=== PATIENT | male | born 1955 | race Caucasian/White ===

== ENCOUNTER 2016-09-20 18:37 | Observation (INO) ==
[2016-09-20] MEDS ORDERED: ASPIRIN PO STA (18:44)
[2016-09-20 19:03] LABS: MANUAL DIFF NEEDED? NO
[2016-09-20 19:13] LABS: BASO% 0.5 % (0.0-0.8); EOS# 0.12 X1000 (0.0-0.7); EOS% 1.6 % (0.0-10.0); HEMATOCRIT 46.8 % (42.0-52.0); HEMOGLOBIN 16.4 g/dL (14.0-18.0); IMM GRAN# 0.02 X1000 (0.0-0.04); IMM GRAN% 0.3 % (0.0-0.5); LYMPH# 1.32 X1000 (1.2-3.4); LYMPH% 17.7 % (20.5-51.1); MCH 29.9 PG (27-31); MCV 85.2 FL (81-99); MONO# 0.57 X1000 (0.11-0.59); MONO% 7.6 % (1.7-9.3); MPV 10.1 FL (7.4-10.4); NEUT% 72.3 % (42.2-75.2); PLT 245 X1000 (130-400); RBC 5.49 XMIL (4.7-6.1)
[2016-09-20 19:14] LABS: PROTIME 10.5 Seconds (9.2-11.7); PTT 27.5 Seconds (22.0-36.0)
[2016-09-20 19:22] LABS: ALBUMIN 4.3 g/dL (3.5-5.0); CALCIUM 9.1 mg/dL (8.8-10.2); MAGNESIUM 2.2 mg/dL (1.5-2.7); POTASSIUM 3.5 mmol/L (3.5-5.1); TOTAL BILIRUBIN 0.29 mg/dL (0.20-1.00); TOTAL PROTEIN 7.4 g/dL (6.3-8.3)
[2016-09-20] MEDS ORDERED: NITROGLYCERIN SL PRN (20:10)
[2016-09-20 21:04] LABS: HEMOGLOBIN A1C 5.9 % (4.8-6.0)
--- NOTE | 2016-09-20 21:38 | HISTORY AND PHYSICAL ---
REASON FOR ADMISSION: Chest pain for last 24 hours. HISTORY OF PRESENT ILLNESS: Mr. Brown is a 61-year-old man with past medical history of coronary artery disease, chronic low back pain, sleep apnea, hypertension. He has had prior CABG and 2 stents in the last 2 years. He comes today because 24 hours ago he initially had a 1 minute episode of retrosternal chest pain radiating to his neck with shortness of breath and nausea. Several hours later, he had another episode of chest pain. This time lasting for a few more minutes with the same shortness of breath, diaphoresis, and nausea and radiation to his neck. He comes in today primarily because several hours after the second episode, he had a more intense episode of retrosternal chest pain radiating to his neck with palpitations, shortness of breath, lightheadedness, and even more profound diaphoresis. Since the onset of this third episode, he is having intermittent on and off chest pain lasting between 15-20 minutes and rates it about 4/10. He denies any antecedent leg swelling, extremity redness or pain. He denies any cough, fever, chills. He denies any PND or orthopnea. He has been given some nitroglycerin with minimal relief in the ER x1 dose. Also his blood pressure is a markedly elevated but the patient. Currently it is 200/130. REVIEW OF SYSTEMS: Patient has said he has had 3 day history of nonbloody diarrhea occurring about 2-3 times a day. No abdominal pain. No genitourinary complaints or any other GI complaints. No neurological complaints. No musculoskeletal complaints. No polyuria or polydipsia. No rash. His 12 system review is negative except for positives as per HPI. ALLERGIES: Coconut oil, cucumbers, strawberries, and penicillin. HOME MEDICATIONS: Xanax 1 mg t.i.d., Soma 350 mg b.i.d., Prozac 40 mg daily, [place] 10 mg t.i.d., lisinopril/HCTZ 20/25 mg once a day, Toprol-XL 25 mg daily, Pravachol 40 mg at bedtime, Ambien 10 mg at bedtime. PAST SURGICAL HISTORY: CABG and stents. SOCIAL HISTORY: Does not smoke, drink, or use drugs. FAMILY HISTORY: He is not sure if there is any heart disease in his family but his mother of breast cancer, dad of lung cancer, and positive history of diabetes in the family. LABORATORY DATA: White count 7000, hemoglobin and hematocrit are 16 and 46, platelets 245,000. Potassium 3.5, BUN 60, creatinine 1.3, bicarb 22, glucose 129. Troponin negative. EKG shows normal sinus rhythm with no ST wave changes. D-dimer is normal. EKG normal. Chest film is pending at this time. PHYSICAL EXAMINATION: VITAL SIGNS: Initial blood pressure was 152/86, now it is 200/130. Heart rate is 82, respirations 18, temperature 98.3, 98% on room air. GENERAL: He is a morbidly obese, middle-aged man who is anxious. He is alert and oriented to person, place and time. Normal mood and affect. HEENT: Head is normocephalic, atraumatic. Eyes KIRILL, EOMI. He is anicteric and not pale. Patient has bilateral pterygium. Oropharynx exam shows extensive pharyngeal crowding, I cannot visualize his posterior pharyngeal wall. No erythema or oral exudates. No signs of cyanosis. NECK: Short and thick. No JVD visualized. No bruit heard. No thyromegaly visualized. CHEST: Clear to auscultation. Good air exchange from [place]. CARDIOVASCULAR: First and second sounds heard. No gallops, murmurs, rubs. Rhythm is regular. ABDOMEN: Protuberant and soft. No tenderness. No masses. No organomegaly. Bowel sounds at this time. EXTREMITIES: No edema, clubbing, cyanosis. Pulses distally in all extremities, have good volume and are symmetrical. NEUROLOGICAL EXAMINATION: Focal deficits. SKIN: Intact. No breakdown or erythema. MUSCULOSKELETAL: Grossly normal. ASSESSMENT AND PLAN: 1. Chest pain. The patient has coronary artery disease. Plan is to optimize patient's medications, i.e., start him on full-dose aspirin; switch his Pravachol to more potent statin, being that he has documented CAD. We will start on Lipitor 40 mg at bedtime. Optimize his beta blockade, increase his Toprol from 25 daily to b.i.d. We will consult and keep him NPO. Do serial cardiac enzymes. Follow EKG in the a.m. Treat him symptomatically with nitroglycerin and morphine p.r.n. 2. Hypertensive heart disease. We continue his blood pressure medications but add on Norvasc to his regimen. I believe his elevated blood pressure may be in part due to the fact that his CPAP machine is destroyed and sleep apnea is not well controlled. 3. Morbid obesity. 4. Sleep apnea. Needs to schedule appointment with sleep doctor. We will consult Dr. Phillips for this. Also patient will need to get a local family doctor as he has only been seen in urgent care clinics and this would not be optimal for this kind of patient. 5. Deep venous thrombosis prophylaxis will be instituted using Lovenox. cc: Kj Michaud MD
[2016-09-20] MEDS ORDERED: ZOFRAN IV PRN (21:57)
[2016-09-20] MEDS ORDERED: LIPITOR PO SCH (21:57)
[2016-09-20] MEDS ORDERED: TYLENOL PO PRN (21:57)
[2016-09-20] MEDS: NITROGLYCERIN TOP SCH (22:28)
[2016-09-20] MEDS: LOVENOX SUBQ SCH (22:28)
[2016-09-20] MEDS: AMBIEN PO SCH (22:28)
[2016-09-20] MEDS: NORVASC PO SCH (22:28)
[2016-09-20] MEDS: TOPROL XL PO SCH (22:28)
--- NOTE | 2016-09-21 02:04 | PROVIDER DOCUMENTATION ---
This chart was entered by Slime Rodas Scribe, acting as scribe for Frank Waldrop MD. HPI-Chest Pain - General Chief Complaint: Chest Pain Stated Complaint: CP Time Seen by Provider: 09/20/16 19:12 Source: patient Allergies/Adverse Reactions: Patient Allergies Allergy/AdvReac Type Severity Reaction Status Date / Time coconut oil Allergy SWELLING Verified 09/20/16 19:46 cucumber Allergy SWELLING Verified 09/20/16 19:46 strawberry Allergy RASH Verified 09/20/16 19:46 Penicillins AdvReac SWELLING Verified 09/20/16 19:46 Home Medications: Home Medication List Medication Instructions Recorded Confirmed Last Taken Type PRAVAstatin [Pravachol] 40 mg PO HS 02/18/16 09/20/16 09/19/16 21:00 History Alprazolam [Xanax] 1 mg PO TID 06/04/16 09/20/16 09/20/16 08:00 History Carisoprodol [Soma] 350 mg PO TID 06/04/16 09/20/16 09/20/16 17:00 History Hydrocodone/APAP 10 mg/325 mg 1 each PO TID 06/04/16 09/20/16 09/20/16 08:00 History [Troy-10] Fluoxetine HCl [Prozac] 40 mg PO DAILY 09/20/16 09/20/16 09/20/16 08:00 History LISINOpril [Prinivil] 20 mg PO HS 09/20/16 09/20/16 09/19/16 21:00 History Lisinopril/Hydrochlorothiazide 1 each PO DAILY 09/20/16 09/20/16 09/20/16 08:00 History [Lisinopril-Hctz 20-25 mg Tab] Metoprolol Succinate [Toprol Xl] 25 mg PO DAILY 09/20/16 09/20/16 09/20/16 08: 00 History Zolpidem [Ambien] 10 mg PO QHS 09/20/16 09/20/16 09/19/16 21:00 History - History of Present Illness-CP Nature of Presenting Problem: 61 year old M presents to the ED with a cc of chest pain with an onset of 3 days ago. Pt states that today she has developed dizziness, nausea, diaphoresis , and SOB. Pt states that his pain has also been radiating to his neck and has been having left arm numbness. Location: reports: substernal Chest Pain Radiation: reports: neck Quality of Pain: reports: aching Severity in ED: mild Onset/Duration: 2 days ago Timing: still present Context/Activities at Onset: reports: none Associated Symptoms: reports: diaphoresis, dizziness, nausea, shortness of breath Aspirin Treatment Today: 325 mg x 1, provided by ED Similar Symptoms Previously?: No Recently Seen Here or By Another Healthcare Provider: No Review of Systems - Adult - REVIEW OF SYSTEMS - ADULT Constitutional: denies: chills, fever Eyes: reports: no symptoms reported Ears, Nose, Mouth & Throat: reports: no symptoms reported Cardiovascular: reports: chest pain. denies: palpitations Respiratory: reports: shortness of breath. denies: cough Gastrointestinal: reports: nausea. denies: vomiting Genitourinary: reports: no symptoms reported Musculoskeletal: reports: no symptoms reported Integumentary: reports: no symptoms reported Neurological: reports: dizziness/vertigo. denies: headache/migraines Psychiatric: reports: no symptoms reported Endocrine: reports: no symptoms reported Hematologic/Lymphatic: reports: no symptoms reported Allergic/Immunologic: reports: no symptoms reported All Other Systems: Reviewed and Negative Past History - Adult - PAST MEDICAL HISTORY-ADULT Review of Records: reports: Nursing Assessment Review, Medications Reviewed Major Childhood Illnesses: reports: denies history Cardiovascular: reports: CAD, HTN - PRIOR SURGERIES/PROCEDURES Surgical/Procedure History: reports: CABG, cardiac stent, orthopedic (extremity) - IMMUNIZATION STATUS Childhood Immunizations: See Nurse Assessment Flu Vaccine: See Nurse Assessment - SOCIAL HISTORY Smoking: non-smoker Substance Use: none/never Alcohol Use Frequency: never Physical Exam-General - PHYSICAL EXAM-ADULT Initial Vital Signs Reviewed: Yes - CONSTITUTIONAL General Appearance: appears well, alert, no apparent distress, obese - RESPIRATORY Respiratory: chest non-tender, lungs clear, normal breath sounds - CARDIOVASCULAR Cardiovascular: normal peripheral pulses, regular rate, rhythm, no edema - GASTROINTESTINAL (ABDOMEN) Abdominal Exam: non tender, soft - MUSCULOSKELETAL Extremity: normal inspection - SKIN Integumentary: diaphoresis - PSYCHIATRIC Psych/Mental Status: normal mood/affect, normal thought content, normal thought process, oriented x 3 Progress - PLAN OF CARE/RESULTS Progress/Plan/Lab Results: Vital Signs - 8 hr 09/20/16 18:39 09/20/16 21:39 Temperature 98.3 F Pulse Rate 83 62 Respiratory Rate 16 15 Blood Pressure 152/86 176/93 O2 Sat by Pulse Oximetry 98 Laboratory Results - last 24 hr 09/20/16 09/20/16 09/20/16 18:45 18:45 18:45 WBC 7.46 RBC 5.49 Hgb 16.4 Hct 46.8 MCV 85.2 MCH 29.9 MCHC 35.0 RDW Std Deviation 13.8 Plt Count 245 MPV 10.1 Immature Gran % (Auto) 0.3 Neut % (Auto) 72.3 Lymph % (Auto) 17.7 L Edgar % (Auto) 7.6 Eos % (Auto) 1.6 Baso % (Auto) 0.5 Immature Gran # (Auto) 0.02 Neut # (Auto) 5.39 Lymph # (Auto) 1.32 Edgar # (Auto) 0.57 Eos # (Auto) 0.12 Baso # (Auto) 0.04 PT INR PTT (Actin FS) D-Dimer 0.10 Sodium 139 Potassium 3.5 Chloride 100 Carbon Dioxide 22 L Anion Gap 17 BUN 16 Creatinine 1.3 H Estimated GFR/1.73 m2 56 BUN/Creatinine Ratio 12 Glucose 129 H Estimat Average Glucose Hemoglobin A1c Calculated Osmolality 280 Calcium 9.1 Magnesium 2.2 Total Bilirubin 0.29 AST 22 ALT 19 Alkaline Phosphatase 57 Creatine Kinase 131 Troponin T Hvh-B-Lsquifphccr Pept Total Protein 7.4 Albumin 4.3 Globulin 3.1 Albumin/Globulin Ratio 1.4 Triglycerides Cholesterol LDL Cholesterol Direct VLDL Cholesterol, Calc HDL Cholesterol Coronary Risk Interp 09/20/16 09/20/16 09/20/16 18:45 18:45 18:45 WBC RBC Hgb Hct MCV MCH MCHC RDW Std Deviation Plt Count MPV Immature Gran % (Auto) Neut % (Auto) Lymph % (Auto) Edgar % (Auto) Eos % (Auto) Baso % (Auto) Immature Gran # (Auto) Neut # (Auto) Lymph # (Auto) Edgar # (Auto) Eos # (Auto) Baso # (Auto) PT 10.5 INR 1.00 PTT (Actin FS) 27.5 D-Dimer Sodium Potassium Chloride Carbon Dioxide Anion Gap BUN Creatinine Estimated GFR/1.73 m2 BUN/Creatinine Ratio Glucose Estimat Average Glucose Hemoglobin A1c Calculated Osmolality Calcium Magnesium Total Bilirubin AST ALT Alkaline Phosphatase Creatine Kinase Troponin T < 0.010 [id number] Pept 38 Total Protein Albumin Globulin Albumin/Globulin Ratio Triglycerides Cholesterol LDL Cholesterol Direct VLDL Cholesterol, Calc HDL Cholesterol Coronary Risk Interp 09/20/16 09/20/16 18:45 18:45 WBC RBC Hgb Hct MCV MCH MCHC RDW Std Deviation Plt Count MPV Immature Gran % (Auto) Neut % (Auto) Lymph % (Auto) Edgar % (Auto) Eos % (Auto) Baso % (Auto) Immature Gran # (Auto) Neut # (Auto) Lymph # (Auto) Edgar # (Auto) Eos # (Auto) Baso # (Auto) PT INR PTT (Actin FS) D-Dimer Sodium Potassium Chloride Carbon Dioxide Anion Gap BUN Creatinine Estimated GFR/1.73 m2 BUN/Creatinine Ratio Glucose Estimat Average Glucose 123 Hemoglobin A1c 5.9 Calculated Osmolality Calcium Magnesium Total Bilirubin AST ALT Alkaline Phosphatase Creatine Kinase Troponin T [id number]-S-[id number] Pept Total Protein Albumin Globulin Albumin/Globulin Ratio Triglycerides 590 H Cholesterol 242 H LDL Cholesterol Direct 158 VLDL Cholesterol, Calc 118 HDL Cholesterol 25 L Coronary Risk Interp 10.00 Orders Category Date Time Status Admit - [facility] Routine AdmDCTranf 09/20/16 21:57 Ordered Activity - Up with Assistance ORDERED Care 09/20/16 21:57 Active Cardiac Monitoring DIRECTED Care 09/20/16 18:44 Active Intake and Output-Strict ORDERED Care 09/20/16 21:57 Active Misc. NRSG Communication Order DIRECTED Care 09/20/16 20:46 Active Nursing- MD Consult Request ROUTINE Care 09/20/16 21:57 Active Oxygen Therapy- ED Nursing DIRECTED Care 09/20/16 18:44 Active Saline Loc NOW Care 09/20/16 18:44 Completed Vital Signs Order Q 8-HR ASSESS Care 09/20/16 21:57 Active Physician/Provider Consults Routine Cons 09/20/16 21:57 Ordered Heart Healthy Diet Diet 09/20/16 20:21 Completed NPO Diet 09/20/16 20:21 Active CHEST-2 VIEWS [RAD] Stat Exams 09/20/16 18:44 Taken A1C HGB W EST AVG GLUCOSE [CHEM] Stat Lab 09/20/16 18:45 Completed BASIC METABOLIC PANEL [CHEM] Routine Lab 09/21/16 06:00 Ordered CBC WITH DIFF [HEME] Routine Lab 09/21/16 06:00 Ordered CBC WITH ELECTRONIC DIFF [HEME] Stat Lab 09/20/16 18:45 Completed CK PROFILE [SP CHEM] Stat Lab 09/20/16 18:45 Completed COMPREHENSIVE METABOLIC PANEL [CHEM] Stat Lab 09/20/16 18:45 Completed D-DIMER [CHEM] Stat Lab 09/20/16 18:45 Completed LIPID PROFILE W/DIR LDL [LIPIDS] Stat Lab 09/20/16 18:45 Completed MAGNESIUM [CHEM] Stat Lab 09/20/16 18:45 Completed PRO B-NATRIURETIC PEPTIDE Stat Lab 09/20/16 18:45 Completed PROTIME WITH INR [COAG] Stat Lab 09/20/16 18:45 Completed PTT [COAG] Stat Lab 09/20/16 18:45 Completed TROPONIN T Q6H PRN Lab 09/20/16 21:57 Completed TROPONIN T Q6H PRN Lab 09/21/16 21:57 Ordered TROPONIN T Stat Lab 09/20/16 18:45 Completed ATORVAstatin [Lipitor] Med 09/20/16 21:57 Active 40 mg PO QHS Acetaminophen [Tylenol] Med 09/20/16 21:57 Active 650 mg PO Q6H PRN PRN Alprazolam [Xanax] Med 09/21/16 09:00 Active 1 mg PO TID Amlodipine [Norvasc] Med 09/20/16 21:57 Active 5 mg PO DAILY Aspirin Med 09/21/16 09:00 Active 325 mg PO DAILY Aspirin Med 09/20/16 18:44 Discontinued 325 mg PO STAT STA Carisoprodol [Soma] Med 09/21/16 09:00 Active 350 mg PO TID Enoxaparin [Lovenox] Med 09/20/16 21:57 Active 40 mg SUBQ Q24H Fluoxetine [Prozac] Med 09/21/16 09:00 Active 40 mg PO DAILY Hydrocodone/APAP 10 mg/325 mg [[place]-10] Med 09/20/16 21:57 Active 1 each PO TID PRN PRN LISINOpril/HCTZ [Prinzide 10/12.5MG] Med 09/21/16 09:00 Active 2 each PO DAILY Metoprolol Succinate E.r. [Toprol Xl] Med 09/20/16 21:57 Active 25 mg PO DAILY Morphine Med 09/20/16 21:57 Active 4 mg IV Q4H PRN PRN Nitroglycerin Med 09/20/16 21:57 Active 1 inch TOP Q6H Nitroglycerin Sl [Nitroglycerin] Med 09/20/16 20:10 Discontinued 0.4 mg SL Q5M PRN PRN Ondansetron [Zofran] Med 09/20/16 21:57 Active 4 mg IV Q4H PRN PRN Zolpidem [Ambien] Med 09/20/16 21:57 Active 10 mg PO QHS Telemetry [OM.EQ] Routine Oth 09/20/16 21:57 Active Transfer/Admit Order [TRANSFER] Routine Transfer 09/20/16 20:19 Completed Result Diagrams: 09/20/16 18:45 09/20/16 18:45 - EKG 1 Time of EKG reading by physician:: 18:41 EKG Read and Signed by:: Frank Waldrop EKG Interpretation (*Must complete 3 of following elements*): Normal Rate: 86 Rhythm: NSR [place]: normal Departure - Departure Time of Disposition Decision: 19:00 DIAGNOSIS: Acute coronary syndrome Disposition: ADMITTED INPATIENT 09 Certified Medical Emergency: Emergent Condition: Fair This chart was documented by the indicated scribe, (Slime Rodas Scribe) and accurately reflects the services I performed and decisions made by , Frank Waldrop MD, as attested by the provider's signature.
[2016-09-21] MEDS: MORPHINE IV PRN ×2 (03:53→17:48)
[2016-09-21] MEDS: NITROGLYCERIN TOP SCH ×2 (04:00→10:00)
--- NOTE | 2016-09-21 05:19 | EKG Report ---
Test Performed on : 09/20/2016 6:41:02 PM Test Reason : CP Blood Pressure : / mmHG Vent. Rate : 086 BPM Atrial Rate : 086 BPM P-R Int : 144 ms QRS Dur : 090 ms QT Int : 382 ms P-R-T Axes : 000 009 066 degrees QTc Int : 457 ms Normal sinus rhythm. Normal ECG When compared with ECG of 04-JUN-2016 00:21, No significant change was found Unconfirmed Result
[2016-09-21 05:44] LABS: MANUAL DIFF NEEDED? NO
[2016-09-21 06:21] LABS: BASO% 0.5 % (0.0-0.8); EOS# 0.14 X1000 (0.0-0.7); EOS% 2.3 % (0.0-10.0); HEMATOCRIT 45.2 % (42.0-52.0); HEMOGLOBIN 15.6 g/dL (14.0-18.0); LYMPH# 1.58 X1000 (1.2-3.4); LYMPH% 26.2 % (20.5-51.1); MCH 29.9 PG (27-31); MCHC 34.5 g/dL (33-37); MCV 86.8 FL (81-99); MONO# 0.61 X1000 (0.11-0.59); MONO% 10.1 % (1.7-9.3); MPV 10.3 FL (7.4-10.4); NEUT% 60.9 % (42.2-75.2); PLT 214 X1000 (130-400); RBC 5.21 XMIL (4.7-6.1)
[2016-09-21 06:22] LABS: AGAP 11; BUN 16 mg/dL (8-22); CHLORIDE 102 mmol/L (98-107); COSMO 277; POTASSIUM 3.7 mmol/L (3.5-5.1); SODIUM 138 mmol/L (136-145); TCO2 25 mmol/L (25-35)
--- NOTE | 2016-09-21 06:47 | Diag Imaging Result Document ---
PROCEDURE NAME: CHEST-2 VIEWS - 09/20/2016 FRONTAL AND LATERAL CHEST, TWO VIEWS: COMPARISON: Compared to 02/18/2016. FINDINGS: Sternal wires are present. The lungs are well expanded. The heart is borderline mildly prominent. The vessels are not distended. No pneumonia. No pleural effusions. No free air beneath the diaphragm. IMPRESSION: Mild cardiomegaly.
[2016-09-21] MEDS: PROZAC PO SCH (08:35)
[2016-09-21] MEDS: TOPROL XL PO SCH (08:35)
[2016-09-21] MEDS: XANAX PO SCH ×3 (08:35→20:42)
[2016-09-21] MEDS: ASPIRIN PO SCH (08:35)
[2016-09-21] MEDS: PRINZIDE 10/12.5MG PO SCH (08:35)
[2016-09-21] MEDS: NORVASC PO SCH (08:35)
[2016-09-21] MEDS: SOMA PO SCH ×3 (10:00→20:42)
--- NOTE | 2016-09-21 11:49 | CONSULTATION ---
DATE OF CONSULTATION: 09/21/2016 INDICATION FOR THE CONSULTATION: Chest pain and lightheadedness. HISTORY OF PRESENT ILLNESS: Mr. Brown is a 61-year-old, white male with a history of coronary artery disease and previous bypass, and paroxysmal atrial fibrillation. 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 This episode lasted for around 10-15 minutes. There were no provokers or palliators. He had no radiation of his symptoms. No nausea, vomiting, or associated diaphoresis. He says this feels somewhat similar to what he has had prior with PCI as well as bypass. PAST MEDICAL HISTORY: 1. Significant for coronary artery disease with previous bypass grafting. He did have a cardiac catheterization in 2014 in [place]. They noted patent bypass grafts with minimal luminal irregularities noted elsewhere. 2. Paroxysmal atrial fibrillation, previously maintained on Eliquis but self-terminated by the patient due to superficial skin bleeds. 3. Hypertension. 4. Hyperlipidemia. 5. Smokeless tobacco use. 6. Morbid obesity. 7. Obstructive sleep apnea. SOCIAL HISTORY: He uses smokeless tobacco. He is . is present at bedside. FAMILY HISTORY: Mother with breast cancer. Father with lung cancer. REVIEW OF SYSTEMS: A 10 system review of systems is negative except for those things mentioned in the HPI. PHYSICAL EXAMINATION: Vital Signs: He is afebrile. His heart rate has been anywhere from the 40s to the 60s. Blood pressure most recently was 138/90. His presenting blood pressure was 152/86. Generally: He is in no acute distress. HEENT: Oropharynx is moist. Normal dentition. Eye examination shows pink conjunctivae and white sclerae. Neck: Examination shows no obvious thyromegaly or thyroid tenderness. Cardiovascular: He is in a regular rate and rhythm. He has no obvious murmurs. There are very distant heart sounds due to his obesity. No lower extremity edema. Chest Examination: Sounds clear. No increased work of breathing. Abdomen: Soft, nontender, nondistended. He has no obvious organomegaly. Skin Examination: Warm and dry throughout without any rashes. Neurological: He is moving all extremities well. Cranial nerves 2-12 are intact without any sensation deficits. Psychiatric: Alert, oriented, pleasant. He has a normal mood and affect. PERTINENT DATA: His EKG shows sinus rhythm. He has nonspecific ST-T changes somewhat diffusely. Rate of 86 beats per minute. His chest x-ray demonstrated mild cardiomegaly. His laboratory data shows a white count of 6, hematocrit 45.2, platelet count 214,000. His sodium is 138, potassium is 3.7, BUN 16, creatinine 1.2. Cardiac enzymes have thus far been negative. His proBNP was 38. His LDL was 158, the triglycerides 590, total cholesterol 242, HDL 25. ASSESSMENT: 1. Chest pain in a patient with a history of coronary artery disease with atypical and typical features. 2. Hyperlipidemia with noncompliance with diet. 3. Paroxysmal atrial fibrillation with noncompliance with medical therapy. PLAN: I will escalate his antianginals by adding in Imdur at 30 mg a day. We may consider escalation of his amlodipine. He does seem relatively bradycardic currently on his beta-jamel. I certainly would continue that for now. We will continue him on his aspirin. We will check stress rest myocardial perfusion imaging as well as an echocardiogram. I have escalated his atorvastatin to 80 mg at bedtime. cc: Stevan Pacheco MD
[2016-09-21] MEDS ORDERED: LEXISCAN ONE (14:10)
[2016-09-21] MEDS: NORCO-10 PO PRN (16:13)
[2016-09-21] MEDS: AMBIEN PO SCH (20:42)
[2016-09-21] MEDS ORDERED: LIPITOR PO SCH (21:00)
[2016-09-21] MEDS: LOVENOX SUBQ SCH (21:14)
[2016-09-22] MEDS: NORCO-10 PO PRN ×2 (02:08→09:38)
--- NOTE | 2016-09-22 04:59 | ECHO REPORT ---
ORDER DATE: 09/21/2016 STUDY: Echocardiogram. MEASUREMENTS: 1. Left ventricular end-diastolic diameter 5.7. 2. Systolic 3.9. 3. Septal thickness 1.0. 4. Posterior wall thickness 1.0. 5. Left atrium 3.7. 6. Aortic root 2.9. SUMMARY: 1. Technically difficult study due to limited acoustic window quality. 2. Aortic mitral and tricuspid valves are without gross structural abnormality. Pulmonic valve is not well demonstrated. Peak instantaneous gradient across the aortic valve is 7 mmHg with a mean gradient of 3 mmHg. Aortic root is normal in size. There is trace mitral regurgitation and trace tricuspid regurgitation. 3. Normal left ventricular dimensions suggested. Estimated left ejection fraction appears to be at least 60%. No obvious regional wall motion abnormality can be appreciated. Doppler suggests grade 1 left ventricular diastolic dysfunction due to impaired relaxation. Left atrium, right atrium, right ventricle are of normal size with grossly preserved right ventricular systolic performance. 4. No pericardial effusion. 5. Appearance of inferior vena cava suggests normal central venous pressure. CONCLUSIONS: 1. Technically difficult study. 2. No significant valvular abnormality identified. 3. Normal left ventricular systolic function without obvious wall motion abnormality evident. 4. Grade 1 left ventricular diastolic dysfunction. cc: MD Stevan Carrion MD
[2016-09-22] MEDS: MORPHINE IV PRN (06:16)
--- NOTE | 2016-09-22 06:18 | Diag Imaging Result Document ---
PROCEDURE NAME: MYOCARDIAL PERF SCAN, STR/REST - 09/21/2016 SUMMARY: The patient was administered 15.8 millicuries of technetium-99m sestamibi after which resting cardiac images were obtained. The patient was subsequently administered Lexiscan per protocol after which the heart rate went from 53 beats per minute to 75 beats per minute. The blood pressure went from 157/93 to 168/95. With Lexiscan, the patient denied chest discomfort. Following the administration of Lexiscan, the patient was administered 46.8 millicuries of technetium-99m sestamibi after which gated stress cardiac images were obtained. Baseline ECG demonstrated sinus bradycardia and nonspecific T-wave abnormality. With Lexiscan, there were no diagnostic ST-segment changes. SPECT images were reconstructed in the short, horizontal long, and vertical long axis. Review of these images demonstrated no scintigraphic evidence of inducible myocardial ischemia. Gated images demonstrate a calculated left ventricular ejection fraction of 69% with symmetrical wall motion/thickening. CONCLUSIONS: 1. Adequate response to Lexiscan. 2. Clinically negative for chest pain. 3. Electrocardiographically, there were no diagnostic ST-segment changes following the administration of Lexiscan. Before Lexiscan, sestamibi images demonstrated no scintigraphic evidence of inducible myocardial ischemia. Normal left ventricular systolic function demonstrated. cc: MD Stevan Carrion MD
[2016-09-22 08:36] VITALS: BP 115/83
[2016-09-22] MEDS ORDERED: IMDUR PO SCH (09:00)
[2016-09-22] MEDS: ASPIRIN PO SCH (09:33)
[2016-09-22] MEDS: NORVASC PO SCH (09:33)
[2016-09-22] MEDS: PROZAC PO SCH (09:33)
[2016-09-22] MEDS: TOPROL XL PO SCH (09:33)
[2016-09-22] MEDS: XANAX PO SCH ×2 (09:33→12:52)
[2016-09-22] MEDS: PRINZIDE 10/12.5MG PO SCH (09:33)
[2016-09-22] MEDS: SOMA PO SCH ×2 (09:33→12:52)
--- NOTE | 2016-09-23 09:17 | DISCHARGE SUMMARY ---
ADMISSION DATE: 09/20/2016 DISCHARGE DATE: 09/22/2016 CONSULTATION: Dr. Stevan Pacheco with cardiology. PERTINENT PROCEDURES: 1. Echocardiogram showed no significant valvular abnormality. Normal LV systolic function without obvious wall motion abnormality. Grade 1 left ventricular diastolic dysfunction. 2. A Lexiscan that was normal. HOSPITAL COURSE: Briefly, Mr. 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 The episode lasted for around 10 or 15 minutes. There were no aggravating or relieving symptoms, no radiation. No nausea, vomiting or associated diaphoresis, but it did feel somewhat similar to what he has had with prior PCIs, as well as bypass. The patient was admitted for chest pain with atypical and typical features. The patient's cardiac enzymes were trended and they all remained negative. Patient underwent an echocardiogram, as well as a Lexiscan that were both normal. Cardiology escalated his antianginals by adding Imdur, and considering the escalation of his amlodipine and continuing his beta jamel, continue on aspirin, and increase the atorvastatin to 80 mg at bedtime. Patient does have hyperlipidemia with noncompliance with diet, and paroxysmal atrial fibrillation with noncompliance with medical therapy. Cardiology, after patient's testing, cleared him for discharge. DISCHARGE VITAL SIGNS: Temperature was 97.7 degrees, heart rate 100, respirations 20, blood pressure 115/80, O2 is 97%. DISCHARGE DIAGNOSES: 1. Chest pain with typical and atypical features, ruled out with cardiac enzymes, as well as echocardiogram and a normal Lexiscan. 2. Hyperlipidemia with noncompliance with diet. He was given diet education and advice, as well as titrated up on his statin. 3. Paroxysmal atrial fibrillation with noncompliance with medical therapy. The patient will continue on his beta jamel. 4. Sleep apnea. The patient will need to schedule an appointment with the Sleep doctor. Dr. Phillips was consulted for this. He can follow up with him on outpatient basis. DISCHARGE DIET: Healthy heart. DISCHARGE MEDICATIONS: Will be as per Dr. Alvares with: 1. Xanax. 2. Norvasc. 3. Aspirin. 4. Lipitor. 5. Soma. 6. Prozac. 7. [place] 10. 8. Imdur. 9. Lisinopril/hydrochlorothiazide. 10. Toprol-XL. 11. Ambien. FOLLOWUP: Patient will be discharged home. 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 Phillips for a sleep study. Patient can return to the ED for any worsening of symptoms. DISCHARGE TIME: 30 minutes. Dictated by MAMTA Smith for Stefan Cardona MD cc: Stefan Cardona MD
== END 2016-09-22 15:00 | disposition home or self-care (01) ==
LOC: ED 18:37 → INTOOBSV 22:04 → EDIPHOLD 22:04 → SUATTDRO 22:04 → 3N 09-21 16:43
PROVIDERS: ATTEND Internal Medicine

== ENCOUNTER 2016-10-18 20:55 | Observation (INO) ==
[2016-10-18] MEDS ORDERED: ASPIRIN PO STA (21:19)
[2016-10-18 21:32] LABS: MANUAL DIFF NEEDED? NO
[2016-10-18] MEDS ORDERED: ZOFRAN IV ONE (21:33)
[2016-10-18] MEDS ORDERED: NITROGLYCERIN TOP ONE (21:33)
[2016-10-18] MEDS ORDERED: NITROGLYCERIN SL ONE (21:33)
[2016-10-18] MEDS ORDERED: MORPHINE IV ONE (21:33)
[2016-10-18 21:38] LABS: BASO% 0.6 % (0.0-0.8); EOS# 0.18 X1000 (0.0-0.7); EOS% 2.8 % (0.0-10.0); HEMATOCRIT 43.3 % (42.0-52.0); HEMOGLOBIN 15.4 g/dL (14.0-18.0); LYMPH# 1.13 X1000 (1.2-3.4); LYMPH% 17.9 % (20.5-51.1); MCH 29.6 PG (27-31); MCHC 35.6 g/dL (33-37); MCV 83.1 FL (81-99); MONO# 0.59 X1000 (0.11-0.59); MONO% 9.3 % (1.7-9.3); MPV 9.5 FL (7.4-10.4); NEUT% 69.4 % (42.2-75.2); PLT 241 X1000 (130-400); RBC 5.21 XMIL (4.7-6.1)
[2016-10-18 21:47] LABS: INR 0.98; PROTIME 10.3 Seconds (9.2-11.7); PTT 26.9 Seconds (22.0-36.0)
[2016-10-18 22:15] LABS: AGAP 19; ALBUMIN 4.1 g/dL (3.5-5.0); ALKALINE PHOSPHATASE 60 U/L (32-122); BUN 16 mg/dL (8-22); CALCIUM 9.6 mg/dL (8.8-10.2); CHLORIDE 98 mmol/L (98-107); COSMO 283; GOT 21 U/L (10-34); GPT 19 U/L (10-44); MAGNESIUM 2.2 mg/dL (1.5-2.7); POTASSIUM 3.2 mmol/L (3.5-5.1); SODIUM 140 mmol/L (136-145); TCO2 23 mmol/L (25-35); TOTAL BILIRUBIN 0.29 mg/dL (0.20-1.00); TOTAL PROTEIN 7.1 g/dL (6.3-8.3)
[2016-10-19] MEDS ORDERED: MORPHINE IV ONE (00:10)
[2016-10-19] MEDS ORDERED: ZOFRAN IV ONE (00:10)
--- NOTE | 2016-10-19 00:13 | PROVIDER DOCUMENTATION ---
This chart was entered by Bina Grossman Scribe, acting as scribe for Jerome Larios MD. HPI-Chest Pain - General Chief Complaint: Chest Pain Stated Complaint: CHEST PAIN Time Seen by Provider: 10/18/16 21:19 Source: patient Allergies/Adverse Reactions: Patient Allergies Allergy/AdvReac Type Severity Reaction Status Date / Time coconut oil Allergy SWELLING Verified 09/20/16 19:46 cucumber Allergy SWELLING Verified 09/20/16 19:46 strawberry Allergy RASH Verified 09/20/16 19:46 Penicillins AdvReac SWELLING Verified 09/20/16 19:46 Home Medications: Home Medication List Medication Instructions Recorded Confirmed Last Taken Type Carisoprodol [Soma] 350 mg PO TID 06/04/16 09/29/16 09/20/16 17:00 History ATORVAstatin [Lipitor] 80 mg PO QHS #90 tablet 09/22/16 09/29/16 Unknown Rx Alprazolam [Xanax] 1 mg PO TID #90 tablet 09/22/16 09/29/16 Unknown Rx Aspirin 325 mg PO DAILY #0 tablet 09/22/16 09/29/16 Unknown Rx Fluoxetine HCl [Prozac] 40 mg PO DAILY #30 capsule 09/22/16 09/29/16 Unknown Rx Hydrocodone/APAP 10 mg/325 mg 1 each PO TID #30 tablet 09/22/16 09/29/16 Unknown Rx [[place]-10] Isosorbide Mononitrate E.r. [Imdur] 60 mg PO DAILY #30 tablet 09/22/16 09/29/16 Unknown Rx Lisinopril/Hydrochlorothiazide 1 each PO DAILY #90 tablet 09/22/16 09/29/16 Unknown Rx [Lisinopril-Hctz 20-25 mg Tab] Metoprolol Succinate [Toprol Xl] 25 mg PO DAILY #90 tab.er.24h 09/22/16 Unknown Rx Zolpidem [Ambien] 10 mg PO QHS #30 tablet 09/22/16 09/29/16 Unknown Rx Clindamycin [Cleocin] 150 mg PO Q6HR #30 capsule 09/29/16 Unknown Rx - History of Present Illness-CP Nature of Presenting Problem: 61 Y/O F presents to ED with Chest Pain. pt states that he's been having left sided chest paun since, 1 this afternoon,feeling like a cramping pain, SOB, diaphoretic denies N. Hx of bypass surgery. Location: reports: other (left sided chest pain) Chest Pain Radiation: reports: arms Quality of Pain: reports: cramping Severity in ED: moderate Onset/Duration: this afternoon Timing: still present Associated Symptoms: reports: diaphoresis, shortness of breath. denies: abdominal pain, fever/chills Similar Symptoms Previously?: Yes Recently Seen Here or By Another Healthcare Provider: No Review of Systems - Adult - REVIEW OF SYSTEMS - ADULT Constitutional: denies: chills, fever Eyes: reports: no symptoms reported Ears, Nose, Mouth & Throat: reports: no symptoms reported Cardiovascular: reports: chest pain Respiratory: reports: shortness of breath. denies: cough Gastrointestinal: denies: abdominal pain, diarrhea, nausea, vomiting Genitourinary: reports: no symptoms reported Musculoskeletal: denies: bone pain, back pain Integumentary: reports: no symptoms reported Neurological: denies: dizziness/vertigo, headache/migraines Psychiatric: reports: no symptoms reported Endocrine: reports: no symptoms reported Hematologic/Lymphatic: reports: no symptoms reported Allergic/Immunologic: reports: no symptoms reported All Other Systems: Reviewed and Negative Past History - Adult - PAST MEDICAL HISTORY-ADULT Review of Records: reports: Old Records Reviewed, Nursing Assessment Review, Medications Reviewed, Social history reviewed & non-contributory. Major Childhood Illnesses: reports: denies history Cardiovascular: reports: CAD, HTN - PRIOR SURGERIES/PROCEDURES Surgical/Procedure History: reports: CABG, cardiac stent, orthopedic (extremity) - IMMUNIZATION STATUS Childhood Immunizations: See Nurse Assessment Flu Vaccine: See Nurse Assessment - SOCIAL HISTORY Smoking: non-smoker Substance Use: none/never Alcohol Use Frequency: never Living Situation: family Physical Exam-General - PHYSICAL EXAM-ADULT Initial Vital Signs Reviewed: Yes - CONSTITUTIONAL General Appearance: appears well, alert, no apparent distress - EYES Eyes: PERRL/EOMI, pink conjunctivae - HEAD, EARS, NOSE, MOUTH & THROAT HENMT: normocephalic/atraumatic, moist mucous membranes, normal ENT inspection, TMs normal, pharynx normal - NECK Neck: non-tender, full range of motion, supple, normal inspection - RESPIRATORY Respiratory: chest non-tender, lungs clear, normal breath sounds - CARDIOVASCULAR Cardiovascular: normal peripheral pulses, regular rate, rhythm - CHEST (BREASTS) Chest/Breast: other (mild- moderate tenderness left side of chest) - GASTROINTESTINAL (ABDOMEN) Abdominal Exam: normal bowel sounds, non tender, soft - LYMPHATIC Lymphatic: no adenopathy - MUSCULOSKELETAL Back Exam: normal inspection, no CVA tenderness, no vertebral tenderness Extremity: normal range of motion - SKIN Integumentary: normal color, normal turgor, warm/dry - NEUROLOGIC Neurologic: grossly normal - PSYCHIATRIC Psych/Mental Status: normal mood/affect, normal thought content, normal thought process, oriented x 3 Progress - PLAN OF CARE/RESULTS Progress/Plan/Lab Results: Vital Signs - 8 hr 10/18/16 21:05 10/18/16 22:34 Temperature 98.2 F Pulse Rate 68 75 Respiratory Rate 18 18 Blood Pressure 161/85 192/105 O2 Sat by Pulse Oximetry 92 L 96 Laboratory Results - last 24 hr 10/18/16 10/18/16 10/18/16 21:24 21:24 21:24 WBC 6.33 RBC 5.21 Hgb 15.4 Hct 43.3 MCV 83.1 MCH 29.6 MCHC 35.6 RDW Std Deviation 13.1 Plt Count 241 MPV 9.5 Immature Gran % (Auto) 0.0 Neut % (Auto) 69.4 Lymph % (Auto) 17.9 L [place] % (Auto) 9.3 Eos % (Auto) 2.8 Baso % (Auto) 0.6 Immature Gran # (Auto) 0.00 Neut # (Auto) 4.39 Lymph # (Auto) 1.13 L [place] # (Auto) 0.59 Eos # (Auto) 0.18 Baso # (Auto) 0.04 PT INR PTT (Actin FS) D-Dimer 0.14 Sodium 140 Potassium 3.2 L Chloride 98 Carbon Dioxide 23 L Anion Gap 19 BUN 16 Creatinine 1.2 Estimated GFR/1.73 m2 > 60 BUN/Creatinine Ratio 13 Glucose 144 H Calculated Osmolality 283 Calcium 9.6 Magnesium 2.2 Total Bilirubin 0.29 AST 21 ALT 19 Alkaline Phosphatase 60 Creatine Kinase Troponin T Ibt-[id number]-Nxeixpvcuay Pept Total Protein 7.1 Albumin 4.1 Globulin 3.0 Albumin/Globulin Ratio 1.4 10/18/16 10/18/16 10/18/16 21:24 21:24 21:24 WBC RBC Hgb Hct MCV MCH MCHC RDW Std Deviation Plt Count MPV Immature Gran % (Auto) Neut % (Auto) Lymph % (Auto) [place] % (Auto) Eos % (Auto) Baso % (Auto) Immature Gran # (Auto) Neut # (Auto) Lymph # (Auto) [place] # (Auto) Eos # (Auto) Baso # (Auto) PT 10.3 INR 0.98 PTT (Actin FS) 26.9 D-Dimer Sodium Potassium Chloride Carbon Dioxide Anion Gap BUN Creatinine Estimated GFR/1.73 m2 BUN/Creatinine Ratio Glucose Calculated Osmolality Calcium Magnesium Total Bilirubin AST ALT Alkaline Phosphatase Creatine Kinase Troponin T < 0.010 Qzp-[id number]-Cvfxeewuurv Pept 183 H Total Protein Albumin Globulin Albumin/Globulin Ratio 10/18/16 10/18/16 10/18/16 21:24 23:30 23:30 WBC RBC Hgb Hct MCV MCH MCHC RDW Std Deviation Plt Count MPV Immature Gran % (Auto) Neut % (Auto) Lymph % (Auto) [place] % (Auto) Eos % (Auto) Baso % (Auto) Immature Gran # (Auto) Neut # (Auto) Lymph # (Auto) [place] # (Auto) Eos # (Auto) Baso # (Auto) PT INR PTT (Actin FS) D-Dimer Sodium Potassium Chloride Carbon Dioxide Anion Gap BUN Creatinine Estimated GFR/1.73 m2 BUN/Creatinine Ratio Glucose Calculated Osmolality Calcium Magnesium Total Bilirubin AST ALT Alkaline Phosphatase Creatine Kinase 110 103 Troponin T < 0.010 [id number]-Gepsvuthdbc Pept Total Protein Albumin Globulin Albumin/Globulin Ratio Orders Category Date Time Status Cardiac Monitoring DIRECTED Care 10/18/16 21:19 Active Saline Loc NOW Care 10/18/16 21:19 Active CHEST-2 VIEWS [RAD] Stat Exams 10/18/16 21:19 Taken CBC WITH ELECTRONIC DIFF [HEME] Stat Lab 10/18/16 21:24 Completed CK PROFILE [SP CHEM] Stat Lab 10/18/16 21:24 Completed CK PROFILE [SP CHEM] Stat Lab 10/18/16 23:30 Completed COMPREHENSIVE METABOLIC PANEL [CHEM] Stat Lab 10/18/16 21:24 Completed D-DIMER [CHEM] Stat Lab 10/18/16 21:24 Completed MAGNESIUM [CHEM] Stat Lab 10/18/16 21:24 Completed PRO B-NATRIURETIC PEPTIDE Stat Lab 10/18/16 21:24 Completed PROTIME WITH INR [COAG] Stat Lab 10/18/16 21:24 Completed PTT [COAG] Stat Lab 10/18/16 21:24 Completed TROPONIN T Stat Lab 10/18/16 21:24 Completed TROPONIN T Stat Lab 10/18/16 23:30 Completed Aspirin Med 10/18/16 21:19 Discontinued 325 mg PO STAT STA Morphine Med 10/18/16 21:33 Discontinued 4 mg IV NOW ONE Morphine Med 10/19/16 00:10 Discontinued 4 mg IV NOW ONE Nitroglycerin Med 10/18/16 21:33 Discontinued 1 inch TOP NOW ONE Nitroglycerin Sl [Nitroglycerin] Med 10/18/16 21:33 Discontinued 0.4 mg SL NOW ONE Ondansetron [Zofran] Med 10/18/16 21:33 Discontinued 4 mg IV NOW ONE Ondansetron [Zofran] Med 10/19/16 00:10 Discontinued 4 mg IV NOW ONE EKG [EKG] Stat Ther 10/18/16 21:07 Ordered EKG [EKG] Stat Ther 10/18/16 23:07 Ordered Result Diagrams: 10/18/16 21:24 10/18/16 21:24 - EKG 1 Time of EKG reading by physician:: 21:12 EKG Read and Signed by:: Jerome Larios EKG Interpretation (*Must complete 3 of following elements*): Normal Rate: 73 Rhythm: NSR Comments: Normal ECG - XRAY 1 XRAY Study: Chest Impression: Normal XRAY Interpretation: Borderline cardiomegaly otherwise Normal - CONSULTS/PCP/HOSPITALIST Notification #1 *Consult/PCP/Hospitalist*: Time Discussed: 00:12 Reason/Comments: Admit Consult Disposition: Admit (Admit Accepted) Departure - Departure Time of Disposition Decision: 00:12 DIAGNOSIS: Chest pain Qualifiers: Chest pain type: unspecified Qualified Code(s): R07.9 - Chest pain, unspecified Disposition: ADMITTED INPATIENT 09 Certified Medical Emergency: Emergent Condition: Fair Referrals and Follow-Ups: None,PCP [Primary Care Provider] - - Critical Care Note This patient required my direct & personal management of CC.: No This chart was documented by the indicated scribe, (Bina Grossman Scribe) and accurately reflects the services I performed and decisions made by me, OTruongMeara, Jerome F., MD, as attested by the provider's signature.
[2016-10-19] MEDS ORDERED: KLOR-CON PO ONE (00:46)
--- NOTE | 2016-10-19 01:30 | HISTORY AND PHYSICAL ---
CHIEF COMPLAINT: Chest pain. HISTORY OF PRESENTING ILLNESS: This is a 61-year-old male with a history of coronary artery disease, hypertension, hyperlipidemia, and obstructive sleep apnea, who presented to the emergency department with a 1-day history of having substernal chest pain. He described the pain as pressure-like, with radiation to the left upper extremity. The patient states that the pain was worsening, and subsequently had come to the emergency department. In the ER, he was evaluated. Due to his presenting symptoms, it was thought that we will place him for observation for further evaluation and management. The patient apparently had been admitted about a month ago with similar complaints, and apparently had a Lexiscan that was negative. At the time of my examination, the patient had denied any headache, visual changes, fever, chills, nausea, vomiting, diarrhea, hemoptysis, melena, weight changes, but complained of chest discomfort. PAST MEDICAL HISTORY: Includes coronary artery disease, [place], hypertension, hyperlipidemia, proximal atrial fibrillation, obstructive sleep apnea. PAST SURGICAL HISTORY: Coronary bypass, coronary stents, right knee arthroscopy, and left elbow surgery. ALLERGIES: Penicillin, strawberries, cucumber, coconut oil, and pickles. CURRENT MEDICATIONS: As listed in the MAR. SOCIAL HISTORY: He denies any history of smoking alcohol or illicit drug use. FAMILY HISTORY: Positive for coronary artery disease in mother. REVIEW OF SYSTEMS: Twelve point review of systems listed as in HPI. Other systems all negative. PHYSICAL EXAMINATION: GENERAL: Cooperative, friendly male. He is resting comfortably now. VITAL SIGNS: Temperature 98.2 degrees, pulse 68, respiration 18, blood pressure 161/85. HEENT: Atraumatic, normocephalic. Extraocular movements intact. PERRLA. NECK: Supple. CHEST: Clear to auscultation. CARDIOVASCULAR: Regular rate and rhythm. ABDOMEN: Soft, obese. Positive bowel sounds. EXTREMITIES: No edema. NEUROLOGIC: He is awake, alert, oriented x3. GENITOURINARY: No bladder distention. SKIN: Warm. LABORATORIES AND STUDIES: WBC 6.33, hemoglobin 15.4, hematocrit 43.3, platelets 241,000. Sodium 140, potassium 3.2, chloride 98, CO2 is 23, BUN is 16, creatinine is 1.2, glucose is 144. ASSESSMENT: A 61-year-old male with a history of coronary artery disease, hypertension, and hyperlipidemia. Presented to the emergency department with a 1-day history of chest pain. We will place patient for observation for further evaluation and management. 1. Chest pain. 2. History of coronary artery disease. 3. Hypertension. 4. Hyperlipidemia. PLAN: 1. We will admit patient to medical floor with telemetry. 2. Continue with cardiac workup. Check EKG, serial cardiac enzymes. Have patient continue on aspirin. We will use sublingual nitroglycerin, morphine p.r.n. chest pain. 3. 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 4. Will optimize all his electrolytes, including his potassium. 5. Will monitor blood pressure. Resume antihypertensive agent. 6. We will check his lipid profile and resume all his home medications. 7. We will put patient on deep venous thrombosis prophylaxis with sequential compression devices. 8. We will continue to follow and reassess. cc: Onesimo Cohn MD
[2016-10-19] MEDS ORDERED: ZOFRAN IV PRN (01:44)
[2016-10-19] MEDS ORDERED: TYLENOL PO PRN (01:44)
[2016-10-19 02:36] LABS: AGAP 13; BUN 16 mg/dL (8-22); CALCIUM 9.3 mg/dL (8.8-10.2); CHLORIDE 103 mmol/L (98-107); COSMO 283; POTASSIUM 3.6 mmol/L (3.5-5.1); SODIUM 141 mmol/L (136-145); TCO2 25 mmol/L (25-35)
--- NOTE | 2016-10-19 05:23 | EKG Report ---
Test Performed on : 10/18/2016 9:12:49 PM Test Reason : CP Blood Pressure : / mmHG Vent. Rate : 073 BPM Atrial Rate : 073 BPM P-R Int : 170 ms QRS Dur : 094 ms QT Int : 412 ms P-R-T Axes : -24 -02 073 degrees QTc Int : 453 ms Normal sinus rhythm. Normal ECG When compared with ECG of 20-SEP-2016 18:41, No significant change was found Unconfirmed Result
[2016-10-19] MEDS ORDERED: NORCO-10 PO PRN (06:19)
[2016-10-19] MEDS ORDERED: PRILOSEC PO SCH (07:00)
[2016-10-19] MEDS ORDERED: FLUOXETINE HCL 40 MG PO SCH ×2 (07:00→09:00)
[2016-10-19] MEDS ORDERED: PROZAC PO SCH (07:12)
[2016-10-19] MEDS: XANAX PO SCH ×2 (07:39→13:12)
[2016-10-19] MEDS: SOMA PO SCH ×2 (07:39→12:30)
--- NOTE | 2016-10-19 07:41 | Diag Imaging Result Doc PS360 ---
EXAM: CHEST-2 VIEWS HISTORY: CP COMMENT: There are sternotomy wires. The heart size is at the upper limits of normal. There is a granuloma laterally in the left lower mid chest which has not changed since 09/20/2016. Otherwise there is no evidence of acute disease. IMPRESSION: Stable chest. Electronically signed by Mariusz Hunt 10/19/2016 7:39 AM
[2016-10-19] MEDS ORDERED: IMDUR PO SCH (09:00)
[2016-10-19] MEDS ORDERED: NORCO-10 PO SCH (09:00)
[2016-10-19] MEDS ORDERED: LIPITOR PO SCH (09:00)
[2016-10-19] MEDS ORDERED: PRINZIDE 10/12.5MG PO SCH (09:00)
[2016-10-19] MEDS ORDERED: ASPIRIN PO SCH (09:00)
[2016-10-19] MEDS ORDERED: TOPROL XL PO SCH (09:00)
[2016-10-19] MEDS ORDERED: ZYRTEC PO SCH (10:45)
[2016-10-19] MEDS ORDERED: NORVASC PO SCH (10:45)
[2016-10-19] MEDS ORDERED: ELIQUIS PO SCH (11:00)
[2016-10-19 11:09] VITALS: BP 129/73
[2016-10-19] MEDS ORDERED: ULTRAM PO PRN (14:18)
--- NOTE | 2016-10-19 14:24 | CONSULTATION ---
DATE OF CONSULTATION: 10/19/2016 INDICATION: Chest pain. HISTORY OF PRESENT ILLNESS: Mr. Brown is a 61-year-old, obese white male with a history of coronary disease. He presented for evaluation of chest discomfort that began yesterday while he was mowing his lawn. He was using a riding lawnmower and driving through quite a bit of dust and began having a lot of difficulty with coughing. This progressed into a stabbing like discomfort in his chest. This has persisted ever since yesterday and is located in the left parasternal area. There has been some relief in it but no complete resolution of this symptom. There is no exertional component. He did get a little bit clammy yesterday with his symptoms but was unsure whether this was related to the chest discomfort or the exertion he was doing in the out of doors. He does note a component of the pain that is reproducible with palpation of the area. PAST MEDICAL HISTORY: 1. Significant for coronary disease with a history of coronary bypass. 2. Paroxysmal atrial fib, maintained on Eliquis as an outpatient. 3. Hypertension. 4. Hyperlipidemia. 5. Smokeless tobacco use. 6. Morbid obesity. 7. Sleep apnea. SOCIAL HISTORY: Significant for no smoking, alcohol, or illicit drugs. FAMILY HISTORY: Significant for coronary disease in his mother. REVIEW OF SYSTEMS: A 10 system review of systems is negative except for those things mentioned in the HPI. PHYSICAL EXAMINATION: He is afebrile. His heart rates have been predominantly in the 50s to 60s. His blood pressure is 129/73.General: He is no acute distress. He is a morbidly obese white male. HEENT: Oropharynx is moist. Poor dentition. Eye examination shows pink conjunctivae, white sclerae. Neck: Examination shows no obvious thyromegaly or thyroid tenderness. Cardiovascular: He is in a regular rate and rhythm. He has no murmurs. He has no S3. He has no lower extremity edema. Chest: Exam sounds relatively clear. He did have pain with palpation over the left sternal area that reproduced the pain. In addition, he had discomfort in that left sternal area that was related to deep inspiration. Abdomen: Soft, nontender, nondistended. He has no obvious organomegaly. Skin Exam: Warm and dry throughout without any rashes. Neurological: Moving all extremities well. Cranial nerves 2 through 12 are intact without any sensation deficits. Psychiatric: He is alert, oriented, pleasant. He has normal mood and affect. PERTINENT DATA: His chest x-ray shows no evidence of any acute disease. He had an EKG performed on presentation that demonstrates sinus rhythm, mild flattening of the T-waves somewhat diffusely but no ischemic changes identified. His laboratory data shows a white count of 6.3, hematocrit 43, platelet count is 241,000. His INR 0.98. His D-dimer was normal. His sodium is 141, potassium 3.6. His BUN is 16, creatinine is 1.2. Cardiac enzymes are negative. His proBNP is essentially negative as well. ASSESSMENT: 1. Chest discomfort that is reproducible to palpation and sounds more pleuritic in nature. 2. History of coronary disease. 3. Morbid obesity. PLAN: Patient's symptoms do not seem to be anginal in nature. There are reproducible with palpation and also pleuritic in nature. I believe they are most likely secondary to an allergic reaction to dust that he was exposed to yesterday while mowing the lawn and resulting in a significant amount of coughing which has caused some sort of musculoskeletal strain in the left chest area. I have adjusted his medications to increase his antianginals, nevertheless, including increasing his Imdur to 90 and adding amlodipine at 2.5. We have correspondently reduced his lisinopril to 10 mg a day. I believe he is okay for discharge. He has had normal cardiac enzymes. He has had a prolonged episode of chest discomfort that sounds more typical of a noncardiac cause. His chest x-ray is unremarkable. His EKG is unremarkable. We will have him follow up with Dr. Phelan for further cardiovascular recommendations. cc: Stevan Pacheco MD
[2016-10-19] MEDS ORDERED: AMBIEN PO SCH (21:00)
[2016-10-19] MEDS ORDERED: PRINIVIL PO SCH (21:00)
--- NOTE | 2016-10-20 06:29 | DISCHARGE SUMMARY ---
ADMISSION DATE: 10/19/2016 DISCHARGE DATE: 10/19/2016 DISPOSITION: Home. FOLLOWUP: 1. Stevan Pacheco MD. 2. Patient's PCP. CONSULTATION DURING THIS ADMISSION: Cardiology was consulted. Patient was seen by Dr. Pacheco. IMAGING STUDIES OF SIGNIFICANCE: 1. A chest x-ray was done which shows no acute disease. Stable chest. 2. EKG was done which shows no acute ST-segment or T-wave changes. 3. Troponins were trended and 3 times is negative. ADMISSION DIAGNOSES: 1. Chest pain. 2. Coronary artery disease. 3. Hypertension. 4. Dyslipidemia. DISCHARGE DIAGNOSES: 1. Costochondritis. 2. History of coronary artery disease. 3. Hypertension. 4. Dyslipidemia. 5. Paroxysmally atrial fibrillation, maintained on Eliquis as an outpatient. 6. Morbid obesity/sleep apnea. DISCHARGE MEDICATIONS: 1. Soma 350 three times per day. 2. Amlodipine 2.5 p.o. daily. 3. Isordil 90 mg daily. 4. Lisinopril 10/12.5 daily. 5. Omeprazole 20 mg daily. 6. Eliquis 5 mg b.i.d. 7. Tramadol 50 mg q.6 hours p.r.n. 8. Zolpidem 10 mg daily. 9. Fluoxetine. 10. Metoprolol 25 mg daily. 11. Aspirin 325 mg daily. 12. Atorvastatin 80 mg daily. PRESENTING COMPLAINT: Chest pain. HISTORY OF PRESENTING COMPLAINT: Mr. Brown is a 60-year-old male with a history of coronary artery disease status post CABG, hypertension, dyslipidemia, who referred to have been mowing his lawn yesterday and then he started having excruciating chest pain which worsened with movement, improved with rest. Came to the emergency department. Was admitted because of his risk factors. HOSPITAL COURSE: The patient was evaluated. Troponins were trended and EKG was done and they were all negative. Patient was seen by a Dr. Pacheco who made some changes to his blood pressure medications and recommended that the patient could be discharged since a stress test, which was done in 09/21/2016 was actually unremarkable. The patient will therefore be discharged. Will be followed up by Dr. Pacheco in about a week to 2 weeks. Time. At the time of discharge, there are not any pending labs or imaging studies. The patient's vitals at the time of discharge, blood pressure is 129/73, pulse of 54, respirations 20, temperature 97.5 degrees. The patient does have costochondral joint tendinous which we think is the cause of his chest pain. TIME SPENT FOR DISCHARGE: Thirty-six minutes. cc: Randall Gaines MD
[2016-10-20] MEDS ORDERED: PRINZIDE 10/12.5MG PO SCH (09:00)
[2016-10-20] MEDS ORDERED: IMDUR PO SCH (09:00)
== END 2016-10-19 16:25 | disposition home or self-care (01) ==
LOC: ED 20:55 → 4N 20:55 → SUATTDRO 10-19 00:27
PROVIDERS: ATTEND Internal Medicine

== ENCOUNTER 2018-12-02 21:23 | Observation (INO) ==
[2018-12-02] MEDS ORDERED: SOLU-MEDROL IV ONE (21:28)
[2018-12-02] MEDS ORDERED: PEPCID PO ONE (21:29)
--- NOTE | 2018-12-02 22:02 | Diag Imaging Result Doc PS360 ---
CHEST-PORTABLE - 12/02/2018 INDICATION: bee sting, anaphylaxsis COMPARISON: 10/12/2018 FINDINGS: Stable sternotomy wires. Stable cardiomegaly and pulmonary vascular congestion. No infiltrates or edema. No large pleural effusion. IMPRESSION: Cardiomegaly and pulmonary vascular congestion. No change from prior. Electronically signed by Kei Sandoval 12/02/2018 9:59 PM
[2018-12-02 23:30] LABS: BASO# 0.07 X1000 (0.0-0.2); BASO% 0.7 % (0.0-0.8); EOS# 0.28 X1000 (0.0-0.7); EOS% 2.6 % (0.0-10.0); HEMATOCRIT 44.3 % (42.0-52.0); HEMOGLOBIN 15.4 g/dL (14.0-18.0); IMM GRAN# 0.02 X1000 (0.0-0.04); IMM GRAN% 0.2 % (0.0-0.5); LYMPH# 3.04 X1000 (1.2-3.4); LYMPH% 28.4 % (20.5-51.1); MCH 28.5 PG (27-31); MCHC 34.8 g/dL (33-37); MCV 81.9 FL (81-99); MONO# 0.83 X1000 (0.11-0.59); MONO% 7.8 % (1.7-9.3); MPV 10.4 FL (7.4-10.4); NEUT# 6.45 X1000 (1.4-6.5); NEUT% 60.3 % (42.2-75.2); PLT 316 X1000 (130-400); RBC 5.41 XMIL (4.7-6.1); RDW 13.7 % (11.5-14.5); WBC 10.69 X1000 (4.8-10.8)
[2018-12-02 23:31] LABS: AGAP 10; BUN 18 mg/dL (8-22); CALCIUM 8.8 mg/dL (8.8-10.2); CHLORIDE 101 mmol/L (98-107); COSMO 294; CREATININE 1.1 mg/dL (0.7-1.2); GLUCOSE 253 mg/dL (70-104); POTASSIUM 3.1 mmol/L (3.5-5.1); SODIUM 142 mmol/L (136-145); TCO2 31 mmol/L (25-35)
--- NOTE | 2018-12-02 23:39 | PROVIDER DOCUMENTATION ---
This chart was entered by Christine Boyle Scribe, acting as scribe for Rishi Hopson MD. HPI-Rash/Wound/ReCheck - General Chief Complaint: Allergic Reaction Stated Complaint: bee sting Time Seen by Provider: 12/02/18 21:38 Source: patient Allergies/Adverse Reactions: Allergies Allergy/AdvReac Type Severity Reaction Status Date / Time venom-wasp Allergy Severe ANAPHYLAXIS Verified 12/02/18 21:37 coconut oil Allergy SWELLING Verified 12/02/18 21:37 cucumber Allergy SWELLING Verified 12/02/18 21:37 strawberry Allergy RASH Verified 12/02/18 21:37 Penicillins AdvReac SWELLING Verified 12/02/18 21:37 Home Medications: Home Medication List Medication Instructions Recorded Confirmed Last Taken Type ATORVAstatin [Lipitor] 80 mg PO DAILY 10/19/16 12/02/18 10/18/16 09:00 History 40 mg Amlodipine [Norvasc] 2.5 mg PO DAILY #60 tablet 10/19/16 12/02/18 Unknown Rx Aspirin 325 mg PO DAILY 10/19/16 12/02/18 10/19/16 00:00 History 325 mg Fluoxetine HCl [Prozac] 40 mg PO BID 10/19/16 12/02/18 10/18/16 07:00 History Hydrocodone/APAP 10 mg/325 mg 1 each PO TID 10/19/16 12/02/18 10/18/16 12:00 History [[place]-10] Isosorbide Mononitrate E.r. [Imdur] 90 mg PO DAILY #60 tablet 10/19/16 12/02/18 Unknown Rx LISINOpril/HCTZ [Prinzide 1 each PO DAILY #60 tablet 10/19/16 12/02/18 Unknown Rx 10/12.5MG] Metoprolol Succinate [Toprol Xl] 25 mg PO DAILY MDD 25 mg 10/19/16 12/02/18 10/18/16 09:00 History Zolpidem [Ambien] 10 mg PO QHS 10/19/16 12/02/18 10/17/16 21:00 History Diphenhydramine [Benadryl] 1 - 2 tab PO Q4-6H PRN PRN #20 cap 01/11/18 12/02/18 Unknown Rx Epinephrine [Epipen 2-Baldo] 0.3 mg IJ ONCE PRN #1 auto.injct 02/24/18 12/02/18 Unknown Rx Famotidine [Heartburn Prevention] 20 mg PO DAILY #7 tab 04/18/18 12/02/18 Unknown Rx Indomethacin 50 mg PO TID PRN #21 cap 04/18/18 12/02/18 Unknown Rx Sulfamethoxazole/Trimethoprim 1 tab PO BID #20 tab 04/26/18 12/02/18 Unknown Rx [Bactrim Ds Tablet] Levofloxacin [Levaquin] 750 mg PO DAILY #7 tab 04/29/18 12/02/18 Unknown Rx Ondansetron Odt [Zofran 4 mg Odt] 4 mg PO Q6H PRN PRN #14 tab 04/29/18 12/02/18 Unknown Rx Famotidine [Pepcid] 20 mg PO BID #10 tab 10/12/18 12/02/18 Unknown Rx Prednisone 20 mg PO BID #10 tab 10/12/18 12/02/18 Unknown Rx Diphenoxylate/Atropine [Lomotil] 1 ea PO 4XDAY PRN PRN #14 tab 11/11/18 12/02/18 Unknown Rx - History of Present Illness-Dermatology Nature of Presenting Problem: Pt is 63/M presenting to ED via EMS. Pt was stung on L pec by Bee. Pt is allergi c. Pt used Epi pen at home and called EMS. EMS administered 2 more EPI en route. Pt sts that he feels somewhat SOB, throat feels swollen and his chest is burning some. Location: reports: chest Quality: reports: painful Severity: reports: mild Context/Associated Symptoms: reports: other (Bee sting) Identifiable cause?: Yes Locality of Occurance: Home Similar Symptoms Previously?: Yes Recently seen or treated by another doctor?: No Review of Systems - Adult - REVIEW OF SYSTEMS - ADULT Constitutional: reports: no symptoms reported. denies: chills, fever Eyes: reports: no symptoms reported Ears, Nose, Mouth & Throat: reports: no symptoms reported, hoarseness. denies: throat pain, throat swelling Cardiovascular: reports: no symptoms reported. denies: chest pain Respiratory: reports: shortness of breath. denies: cough, wheezing Gastrointestinal: reports: no symptoms reported. denies: abdominal pain, diarrhea, nausea, vomiting Genitourinary: reports: no symptoms reported Musculoskeletal: reports: no symptoms reported Integumentary: reports: no symptoms reported Neurological: reports: no symptoms reported. denies: dizziness/vertigo, headache/migraines Psychiatric: reports: no symptoms reported Endocrine: reports: no symptoms reported Hematologic/Lymphatic: reports: no symptoms reported Allergic/Immunologic: reports: no symptoms reported All Other Systems: Reviewed and Negative Past History - Adult - PAST MEDICAL HISTORY-ADULT Review of Records: reports: Old Records Reviewed, Nursing Assessment Review, Medications Reviewed, Social history reviewed & non-contributory. Major Childhood Illnesses: reports: denies history Cardiovascular: reports: CAD, HTN, hyperlipidemia Respiratory: reports: denies history Gastrointestinal: reports: denies history Obstetrical/Gynecological: reports: denies history Genitourinary: reports: denies history Musculoskeletal: reports: denies history Neurological: reports: denies history Psychiatric: reports: denies history Endocrine/Immune: reports: denies history Other Conditions: reports: denies history - PRIOR SURGERIES/PROCEDURES Surgical/Procedure History: reports: CABG, cardiac stent - IMMUNIZATION STATUS Childhood Immunizations: See Nurse Assessment Flu Vaccine: See Nurse Assessment - FAMILY HISTORY Family History: reviewed, not pertinent - SOCIAL HISTORY Smoking: denies, non-smoker Substance Use: none/never Alcohol Use Frequency: never Living Situation: family Physical Exam-General - PHYSICAL EXAM-ADULT Initial Vital Signs Reviewed: Yes - CONSTITUTIONAL General Appearance: appears well, alert, no apparent distress, obese - EYES Eyes: PERRL/EOMI, pink conjunctivae - HEAD, EARS, NOSE, MOUTH & THROAT HENMT: normocephalic/atraumatic, moist mucous membranes, normal ENT inspection, TMs normal, pharynx normal (no throat swelling upon exam) - RESPIRATORY Respiratory: chest non-tender, lungs clear, normal breath sounds. negative: stridor, wheezing - CARDIOVASCULAR Cardiovascular: regular rate, rhythm - GASTROINTESTINAL (ABDOMEN) Abdominal Exam: normal bowel sounds, non tender, soft - LYMPHATIC Lymphatic: no adenopathy - MUSCULOSKELETAL Back Exam: normal inspection, no CVA tenderness, no vertebral tenderness Extremity: normal range of motion, non-tender, normal gait, normal inspection - SKIN Integumentary: normal color, warm/dry, other (Sting to L pectoral) - NEUROLOGIC Neurologic: grossly normal - PSYCHIATRIC Psych/Mental Status: normal mood/affect, normal thought content, normal thought process, oriented x 3 Progress - PLAN OF CARE/RESULTS Progress/Plan/Lab Results: Vital Signs - 8 hr 12/02/18 21:35 12/02/18 21:36 12/02/18 21:37 Temperature 98.1 F Pulse Rate 73 73 Respiratory Rate 20 20 Blood Pressure 172/77 172/77 O2 Sat by Pulse Oximetry 96 96 96 12/02/18 21:40 12/02/18 21:50 12/02/18 22:00 Temperature Pulse Rate 75 76 77 Respiratory Rate 16 19 13 Blood Pressure O2 Sat by Pulse Oximetry 96 95 97 12/02/18 22:10 12/02/18 22:20 12/02/18 22:30 Temperature Pulse Rate 82 79 79 Respiratory Rate 21 20 Blood Pressure O2 Sat by Pulse Oximetry 96 94 L 93 L 12/02/18 22:40 12/02/18 22:50 12/02/18 23:00 Temperature Pulse Rate 79 76 76 Respiratory Rate 19 19 14 Blood Pressure O2 Sat by Pulse Oximetry 94 L 94 L 93 L 12/02/18 23:10 12/02/18 23:26 Temperature 98.7 F Pulse Rate 76 74 Respiratory Rate 12 17 Blood Pressure 146/87 O2 Sat by Pulse Oximetry 93 L Laboratory Results - last 24 hr 12/02/18 12/02/18 22:31 22:31 WBC 10.69 RBC 5.41 Hgb 15.4 Hct 44.3 MCV 81.9 MCH 28.5 MCHC 34.8 RDW Std Deviation 13.7 Plt Count 316 MPV 10.4 Immature Gran % (Auto) 0.2 Neut % (Auto) 60.3 Lymph % (Auto) 28.4 [place] % (Auto) 7.8 Eos % (Auto) 2.6 Baso % (Auto) 0.7 Immature Gran # (Auto) 0.02 Neut # (Auto) 6.45 Lymph # (Auto) 3.04 [place] # (Auto) 0.83 H Eos # (Auto) 0.28 Baso # (Auto) 0.07 Sodium 142 Potassium 3.1 L Chloride 101 Carbon Dioxide 31 Anion Gap 10 BUN 18 Creatinine 1.1 BUN/Creatinine Ratio 16 Glucose 253 H Calculated Osmolality 294 Calcium 8.8 Orders Category Date Time Status CHEST-PORTABLE [RAD] Stat Exams 12/02/18 21:47 Completed BMP [BASIC METABOLIC PANEL] [CHEM] Stat Lab 12/02/18 22:31 Completed CBC WITH DIFF [HEME] Stat Lab 12/02/18 22:31 Completed Famotidine [Pepcid] Med 12/02/18 21:29 Discontinued 40 mg PO NOW ONE Methylprednisolone Sod Succ [Solu-Medrol] Med 12/02/18 21:28 Discontinued 125 mg IV NOW ONE EKG [EKG] Stat Ther 12/02/18 21:47 Ordered Result Diagrams: 12/02/18 22:31 12/02/18 22:31 - REASSESSMENT Reassessment #1 Time Reassessed: 22:45 (throat, breathing feel better) Status: improving - XRAY 1 XRAY: Bilateral XRAY Study: Chest Impression: Normal (IMPRESSION: Cardiomegaly and pulmonary vascular congestion. No change from prior. Electronically signed by Kei Sandoval 12/02/2018 9:59 PM 12/02/18 [id number]) - CONSULTS/PCP/HOSPITALIST Notification #1 *Consult/PCP/Hospitalist*: [place] Time Discussed: 23:35 Consult Disposition: Will see in ED, Admit Departure - Departure Date of Disposition Decision: 12/02/18 Time of Disposition Decision: 21:45 DIAGNOSIS: Anaphylactic reaction to bee sting Disposition: ADMITTED INPATIENT 09 Certified Medical Emergency: Emergent Condition: Good Referrals and Follow-Ups: Neo Mayers MD [Primary Care Provider] - - Critical Care Note This patient required my direct & personal management of CC.: Yes Total Time (mins): 30 Critical Care Statement: This patient required my direct personal management to treat or rule out processes, the absence of which, could potentiallly result in sudden, clinically significant life or limb threatening deterioration. Attestation - Physician/ MICHAEL Attestation Patient care was provided by Advanced Practice Provider:: No The physician spent face to face time with patient:: Yes Advanced Practice Provider documentation review:: Supervising physician onsite and consulted in the evaluation and care of this patient. The physician did have a face to face encounter with the patient. This chart was documented by the indicated scribe, (Christine Boyle Scribwolf) and accurately reflects the services I performed and decisions made by me, Rishi Hopson MD, as attested by the provider's signature.
[2018-12-03] MEDS ORDERED: GLUCAGON SUBQ ONE (00:29)
[2018-12-03] MEDS ORDERED: POTASSIUM CHLORIDE 20 MEQ/SWI 20 MEQ/100 ML IVPB IV ONE (00:34)
[2018-12-03] MEDS ORDERED: STERILE WATER INJ. ONE (00:55)
[2018-12-03] MEDS ORDERED: EPIPEN INJ SCH (02:17)
[2018-12-03] MEDS ORDERED: TYLENOL PO PRN (02:17)
[2018-12-03] MEDS ORDERED: ZOFRAN IV PRN (02:17)
[2018-12-03] MEDS: LOVENOX SUBQ SCH (03:00)
[2018-12-03] MEDS: NS 1,000 ML IV SCH ×2 (03:00→09:21)
[2018-12-03] MEDS: SOLU-MEDROL IV SCH ×5 (03:00→20:17)
[2018-12-03] MEDS: BENADRYL IV SCH ×5 (03:00→20:15)
[2018-12-03] MEDS: DUONEB (A & A) INH SCH ×4 (03:35→22:35)
--- NOTE | 2018-12-03 06:08 | HISTORY AND PHYSICAL ---
PRIMARY CARE PROVIDER: Dr. Kei Ferrell. REASON FOR ADMISSION: Bee stings with upper airway dyspnea. HISTORY OF PRESENT ILLNESS: Mr. Yoel Brown is a 63-year-old male with past medical history of coronary artery disease, status post CABG and PTCA, hypertension, hyperlipidemia, morbid obesity with sleep apnea. States last admission here was for a wasp sting which caused a mild anaphylactic reaction. Today, patient's said in the early hours of evening of 12/02/2018 was stung on the chest by a bee and have had the presence of mind to use his EpiPen. Despite this, he started noticing his lip and tongue tingling and having some slight upper airway difficulty breathing. EMS was contacted. By the time they got there, he had already taken 2 tabs of Benadryl and they did give him 2 more doses of a EpiPen en route to the hospital. On arrival here, he received Benadryl and Pepcid. He says his symptoms have improved thus far. However, he feels a little wheezing in his chest. The patient is being admitted for 23 hour observation to ensure he does not relapse and have anaphylactic state. Other than that, he denies any chest pain or ischemic type symptoms. He denies any gastrointestinal, genitourinary or focal neurological complaints. No rash or arthralgia except for a tiny bump on his chest wall where the bee sting was. REVIEW OF SYSTEMS: Twelve system review was done. Positive findings per HPI. ALLERGY: To bee and wasp venom, coconut oil, cucumbers, strawberry and penicillins. HOME MEDICATIONS: Patient is on Ambien 10 mg at bedtime, aspirin 325 mg daily, Lipitor 80 mg daily, [place] 10 t.i.d. p.r.n., Prozac 40 mg b.i.d., Toprol-XL 25 mg daily, Prinzide 10 mg/12.5 mg daily, Imdur 90 mg daily, EpiPen p.r.n., Norvasc 2.5 mg daily. SURGICAL HISTORY: CABG, PTCA, left elbow surgery, right knee surgery. SOCIAL HISTORY: . Does not smoke, drink, or use drugs. FAMILY HISTORY: Notable for diabetes, lung cancer, and breast cancer. LABORATORY WORK: White count 7000, hemoglobin and hematocrit 15 and 44, platelets 316,000 with normal differential. Potassium 3.1, BUN 18, creatinine 1.1, glucose 253. Chest film, cardiomegaly with pulmonary vascular congestion. PHYSICAL EXAMINATION: VITAL SIGNS: Blood pressure 146/87, heart rate 74, respirations 17, temperature is 98.7 degrees. He is 93% on 2 L. GENERAL: Morbidly obese middle-aged man who is not in acute distress. A and O x3. Normal mood and affect. HEENT: Head is normocephalic, atraumatic. Eyes, [place]IR[place]. EOMI. Conjunctivae not pale. ENT/oropharynx exam is grossly normal except for patient has a good grade 4 Mallampati oropharynx appearance. No sinusitis. NECK: Short and thick. No JVD or carotid bruit. No thyromegaly or stridor. CHEST: Clear to auscultation with good air entry both lung [place]. CARDIOVASCULAR: First and second sounds heard. No gallops, murmurs, rubs. Rhythm is regular. ABDOMEN: Protuberant, soft, nontender. No megaly. Bowel sounds hyperactive. RECTAL: Deferred at this time. EXTREMITIES: Good distal pulse volumes symmetrical regular. No clubbing, cyanosis, or edema. NEUROLOGICAL: No gross focal deficits. SKIN: Intact. No breakdown, lesions, or erythema. MUSCULOSKELETAL: Grossly normal. ASSESSMENT: 1. Mild bee venom-induced anaphylaxis. 2. Coronary artery disease. 3. Hypokalemia. 4. Hypertension. 5. Hyperglycemia, possible new onset type 2 diabetes. PLAN: Patient will be admitted to the ICU for close monitoring. Steroids, H1 and H2 blockers will be initiated. We will hold Toprol as this can attenuate the effects of epinephrine should anaphylaxis recur. I have given 1 dose of glucagon. I have recommended check A1c due to strong family history of hyperglycemia. If patient is stable over the course of next 24 hours, can be discharged on H1 and H2 blockers for few days and short tapering dose of steroids. cc: MD Kj Stevens MD
[2018-12-03 06:37] LABS: BASO# 0.02 X1000 (0.0-0.2); BASO% 0.2 % (0.0-0.8); HEMATOCRIT 44.5 % (42.0-52.0); HEMOGLOBIN 15.5 g/dL (14.0-18.0); IMM GRAN# 0.02 X1000 (0.0-0.04); IMM GRAN% 0.2 % (0.0-0.5); LYMPH# 0.63 X1000 (1.2-3.4); LYMPH% 6.2 % (20.5-51.1); MCH 28.5 PG (27-31); MCHC 34.8 g/dL (33-37); MCV 81.8 FL (81-99); MONO# 0.05 X1000 (0.11-0.59); MONO% 0.5 % (1.7-9.3); NEUT# 9.39 X1000 (1.4-6.5); NEUT% 92.9 % (42.2-75.2); PLT 245 X1000 (130-400); RBC 5.44 XMIL (4.7-6.1); RDW 13.8 % (11.5-14.5); WBC 10.11 X1000 (4.8-10.8)
[2018-12-03 06:52] LABS: HEMOGLOBIN A1C 7.4 % (4.8-6.0)
[2018-12-03 07:13] LABS: CREATININE 1.5 mg/dL (0.7-1.2); POTASSIUM 3.3 mmol/L (3.5-5.1)
[2018-12-03] MEDS: IMDUR PO SCH ×2 (07:58→08:41)
[2018-12-03] MEDS: LIPITOR PO SCH ×2 (07:58→08:42)
[2018-12-03] MEDS: NORCO-10 PO SCH ×3 (07:59→17:02)
[2018-12-03] MEDS: NORVASC PO SCH (07:59)
[2018-12-03] MEDS: ASPIRIN PO SCH (07:59)
[2018-12-03] MEDS: PEPCID PO SCH ×2 (08:00→20:18)
[2018-12-03] MEDS: PRINZIDE 10/12.5MG PO SCH (08:08)
--- NOTE | 2018-12-03 08:08 | EKG Report ---
Test Performed on : 12/02/2018 10:36:30 PM Test Reason : CP Blood Pressure : / mmHG Vent. Rate : 077 BPM Atrial Rate : 077 BPM P-R Int : 204 ms QRS Dur : 104 ms QT Int : 408 ms P-R-T Axes : 059 003 080 degrees QTc Int : 461 ms Normal sinus rhythm. Normal ECG When compared with ECG of 12-OCT-2018 13:46, No significant change was found Unconfirmed Result
[2018-12-03] MEDS ORDERED: APRESOLINE IV PRN (08:30)
[2018-12-03] MEDS ORDERED: KLOR-CON PO ONE (08:38)
[2018-12-03] MEDS: PROZAC PO SCH ×2 (09:20→20:18)
[2018-12-03] MEDS ORDERED: COLACE PO ONE (14:09)
[2018-12-03] MEDS ORDERED: AMBIEN PO SCH (21:00)
[2018-12-04] MEDS: BENADRYL IV SCH ×2 (02:54→07:55)
[2018-12-04] MEDS: SOLU-MEDROL IV SCH ×2 (02:54→07:55)
[2018-12-04] MEDS: LOVENOX SUBQ SCH (02:55)
[2018-12-04] MEDS: DUONEB (A & A) INH SCH (03:31)
[2018-12-04 05:45] LABS: BASO# 0.01 X1000 (0.0-0.2); BASO% 0.1 % (0.0-0.8); HEMATOCRIT 39.8 % (42.0-52.0); HEMOGLOBIN 13.6 g/dL (14.0-18.0); IMM GRAN# 0.04 X1000 (0.0-0.04); IMM GRAN% 0.2 % (0.0-0.5); LYMPH# 1.06 X1000 (1.2-3.4); LYMPH% 5.7 % (20.5-51.1); MCH 28.3 PG (27-31); MCHC 34.2 g/dL (33-37); MCV 82.7 FL (81-99); MONO# 0.53 X1000 (0.11-0.59); MONO% 2.9 % (1.7-9.3); NEUT# 16.91 X1000 (1.4-6.5); NEUT% 91.1 % (42.2-75.2); PLT 247 X1000 (130-400); RBC 4.81 XMIL (4.7-6.1); RDW 14.1 % (11.5-14.5); WBC 18.55 X1000 (4.8-10.8)
[2018-12-04 05:49] LABS: ALB/GLOB RATIO 1.5; ALBUMIN 4.1 g/dL (3.5-5.0); CALCIUM 8.6 mg/dL (8.8-10.2); CREATININE 1.4 mg/dL (0.7-1.2); POTASSIUM 3.7 mmol/L (3.5-5.1); TOTAL BILIRUBIN 0.39 mg/dL (0.20-1.00); TOTAL PROTEIN 6.8 g/dL (6.3-8.3)
[2018-12-04 06:24] LABS: LYMPHS 2 % (21-51); MONO 2 % (1-9); SEGS 96 % (42-75)
--- NOTE | 2018-12-04 07:11 | Diag Imaging Result Doc PS360 ---
EXAM: CHEST-PORTABLE 12/04/2018 HISTORY: dyspnea TECHNIQUE: AP portable at 0514 COMMENT: There is cardiomegaly and increased pulmonary vascularity. The inspiration is much less optimal than on 12/02/2018. The possibility of mild pulmonary edema cannot be excluded. IMPRESSION: Cardiomegaly and poor inspiration. Electronically signed by Mariusz Hunt 12/04/2018 7:09 AM
[2018-12-04] MEDS: IMDUR PO SCH ×2 (07:55→08:40)
[2018-12-04] MEDS: PEPCID PO SCH ×2 (07:56→08:39)
[2018-12-04] MEDS: NORVASC PO SCH ×2 (07:56→08:40)
[2018-12-04] MEDS: NORCO-10 PO SCH ×2 (07:56→08:39)
[2018-12-04] MEDS: LIPITOR PO SCH ×2 (07:56→08:40)
[2018-12-04] MEDS: PRINZIDE 10/12.5MG PO SCH ×2 (07:56→08:39)
[2018-12-04] MEDS: PROZAC PO SCH ×2 (07:57→08:39)
[2018-12-04] MEDS: ASPIRIN PO SCH ×2 (07:57→08:39)
[2018-12-04 08:35] VITALS: BP 140/75
--- NOTE | 2018-12-04 09:35 | DISCHARGE SUMMARY ---
ADMISSION DATE: 12/03/2018 DISCHARGE DATE: HISTORY OF PRESENT ILLNESS AND HOSPITAL COURSE: He is a patient of Dr. Kei Ferrell. He walked out of his house and got stung by a black wasp. He has a known allergy, and did develop some shortness of breath. He took an EpiPen, received some more epinephrine, I believe on the way, Solu-Medrol, and some Benadryl. His tongue was starting to swell up. He was having some slight upper airway difficulty, and I believe he had 1 dose at home, and took 2 tablets of Benadryl and 2 more doses of EpiPen on the way to the hospital. He feels much better today. No swelling. Eating well. He would like to go home. He does have a history of coronary artery disease, status post CABG a couple of years ago, hypokalemia, hypertension, and he did have a little bit of hyperglycemia, and they have been following him for possible new onset of diabetes. He did have a white count of 18,550, hematocrit 39, platelet count 247,000. Sodium 137, potassium 3.7, chloride 100, BUN 22, creatinine 1.4. No sign of infection. It is planned to let him go home. He has EpiPens at home. DISCHARGE MEDICATIONS: He will stay on his Lipitor 80 mg a day, Norvasc 2.5 mg daily, aspirin 325 mg daily. He takes Benadryl as needed, he takes Lomotil as needed, he has an EpiPen at home. He takes famotidine 20 mg daily, I think actually he takes it twice a day, Prozac 40 mg b.i.d., hydrocodone he has at home for p.r.n. pain t.i.d., Indocin 50 mg t.i.d. p.r.n., Imdur 90 mg daily, lisinopril/hydrochlorothiazide 10/12.5 one a day, Levaquin 750 mg p.o. daily, Toprol-XL 25 mg daily, prednisone 20 mg b.i.d., and he was taking Bactrim, I think double-strength 1 b.i.d., I think he would finish that out, he had a total of 20 tablets, Ambien 10 mg at bedtime. FOLLOWUP: He will follow up with Dr. Ferrell. cc: Byron Ruelas MD
== END 2018-12-04 09:52 | disposition home or self-care (01) ==
LOC: SUPCPDRO → ED 21:23 → ICU 21:23 → SUATTDRO 12-03 02:10
PROVIDERS: ATTEND Emergency Medicine
CPT/HCPCS: 71010; 71045; 80048; 80053; 83036; 83735; 85025; 93005; 94640; A9270; J1200; J1610; J1650; J2405; J2930; J3480; J7030